=== PATIENT | female | born 1945 | race Caucasian/White ===

== ENCOUNTER 2016-12-19 12:11 | Day surgery (SDC) | payer OTHER ==
[~2016-12-19] VITALS: Ht 157.5 cm; Wt 96.1 kg
[~2016-12-19 12:11] MED LIST: ALLEGRA ALLERG180 MG PO; ASCORBIC ACID100 MG PO; CIMETIDINE800 MG PO; FLOVENT 11120 INHALA IH; FLOVENT DISKUS1 DISK IH; LIPITOR20 MG PO; LO-DOSE ASPIRIN81 M2 PO; MULTI COMPLETE1 EACH PO; NASACORT10.8 ML BOTH NARES; OXYTROL FOR WO1 EACH TD; PATADAY2.5 ML BOTH EYES; PREMARIN0.3 MG PO; PREVACID30 MG PO; PROAIR HFA8.5 GM IH; SINGULAIR10 MG PO; TOPROL XL50 MG PO; VITAMIN D5000 UNI1 PO
[2016-12-19 12:57] VITALS: BP 156/88
[2016-12-19 16:45] VITALS: BP 142/68
[2016-12-19 17:28] VITALS: BP 140/69
== END 2016-12-19 17:30 | disposition home or self-care (01) ==
LOC: SDC 12:11
DX: D07.1 Carcinoma in situ of vulva (principal); I10 Essential (primary) hypertension; E78.5 Hyperlipidemia, unspecified; E55.9 Vitamin D deficiency, unspecified; Z79.899 Other long term (current) drug therapy; Z79.82 Long term (current) use of aspirin
CPT/HCPCS: 88305; J1580; J1885; J3010; J7050; S0030